=== PATIENT | female | born 2000 | race Caucasian/White ===

== ENCOUNTER 2021-05-13 08:29 | Emergency (ER) | payer MEDICAID, SELFPAY ==
[2021-05-13 08:30] VITALS: BP 130/79; PULSE 91; RESP 16; TEMP 37.2; O2SAT 99; BMI 21.2
--- NOTE | 2021-05-13 08:58 | EX.ED.VIS.UR ---
HPI HPI - URI History of Present Illness Chief Complaint: Sore Throat Informant: patient Onset/Context/Timing Onset: Today Context: Sudden Onset Timing: Continuous Quality: Aching Location: Right jaw Worsened by: Swallowing and Eating Solids Associated Symptoms Associated Symptoms: Negative for Nasal Congestion, Headache, Nausea, Vomiting, Diarrhea, Shortness of Breath, Chest Pain, Nonproductive cough, Hemoptysis and Productive Cough Narrative Narrative: Patient presents with pain and swelling to the right side of her jaw that began today when she woke up. Patient describes it as aching but it is worse with eating or chewing. Patient states nothing makes it better. Patient states the pain is localized to the right side of her jaw. Patient denies any pain on the left side. Patient admits to a mild sore throat. Patient denies any fevers or chills. Patient denies any ear pain. Patient denies any nausea or vomiting. ROS ROS ED Constitutional Constitutional ED: Denies chills or fever(s) Eyes Eyes: Denies blurry vision or change in vision ENT ENT ED: Denies rhinorrhea or sore throat Cardiovascular Cardiovascular: Denies chest pain or palpitations Respiratory/Chest Respiratory/Chest: Denies cough or dyspnea Gastrointestinal Gastrointestinal: Denies nausea or vomiting Genitourinary Genitourinary ED: Denies dysuria or hematuria Musculoskeletal Musculoskeletal: Denies back pain or neck pain Integumentary Denies abscess or rash Neurologic Neurologic: Denies headache(s) or weakness Allergic/Immunologic Allergic/Immunologic ED: Denies mouth swelling or urticaria PFSH PFSH no medical history Home Medications penicillin V potassium 500 mg PO 4X/DAY #40 tab 05/13/21 [Rx Last Taken Unknown] Allergy/AdvReac Type Severity Reaction Status Date / Time No Known Allergies Allergy Verified 05/13/21 08:30 no surgical history Social History Smoking Status: Never smoker EXAM Physical Exam Const Vital Signs: 05/13/21 08:30 Temperature 98.9 F Temperature Source Oral Pulse Rate 91 Respiratory Rate 16 Blood Pressure 130/79 H Blood Pressure Mean 96 Pulse Ox 99 Oxygen Delivery Method Room Air Positive well nourished and well developed General Appearance ED: well developed HEENT Reports moist mucous membranes normocephalic Throat: posterior oropharynx abnormal Positive for erythema; Negative for exudates Eyes PERRL and EOMs intact bilaterally Neck no lymphadenopathy, supple and no JVD Resp normal respiratory effort and clear to auscultation bilaterally Cardio Rate: regular rate Rhythm: regular rhythm GI non-tender Palpation: soft Neuro oriented x3, CN's II-XII intact bilaterally and no sensory deficits noted Sensorium / Orientation: alert Motor Exam: strength 5/5 throughout Psych mental status grossly normal MDM MDM MDM Narrative Medical decision making narrative: Rapid strep was obtained and was negative. CBC and basic metabolic profile were obtained and were within normal limits. Patient is feeling better on reevaluation. Patient was advised that this may be a dental infection. Patient was given a prescription for Pen-Vee K. Patient was instructed to follow-up with her primary care physician in 5 to 7 days. Patient understood and was agreeable with the plan. All questions were answered. Lab Data Attestation: I reviewed the patient's lab results. Labs: Laboratory Results - last 24 hr 05/13/21 05/13/21 09:10 09:10 WBC 5.0 RBC 3.96 L Hgb 11.3 L Hct 34.9 L MCV 88.1 MCH 28.5 MCHC 32.4 RDW Std Deviation 44.0 H RDW Coeff of Eve 13.4 Plt Count 246 MPV 10.6 Immature Gran % (Auto) 0.200 Neut % (Auto) 54.5 Lymph % (Auto) 37.3 [place] % (Auto) 5.8 Eos % (Auto) 1.6 Baso % (Auto) 0.6 Absolute Neuts (auto) 2.7 Absolute Lymphs (auto) 1.87 Nucleated RBC % 0 Sodium 137 Potassium 4.0 Chloride 104 Carbon Dioxide 26.0 Anion Gap 7 BUN 12 Creatinine 0.52 L Estim Creat Clear Calc 146.54 Est GFR (MDRD) Af Amer 191 Est GFR (MDRD) Non-Af 158 BUN/Creatinine Ratio 23.3 H Glucose 84 Calcium 8.7 Discharge Plan Triage Chief Complaint: Sore Throat ED Provider: Tin Castillo Dx/Rx/DC Orders Clinical Impression: Infected dental caries Instructions: ED Tooth Abscess Prescriptions: New penicillin V potassium 250 MG tablet 500 mg PO 4X/DAY Qty: 40 RF: 0 Primary Care Provider: Care Physician,No Primary Referrals: Care Physician,No Primary [Primary Care Provider] - Dentist,Your [STAFF PHYSICIAN] - 5-7 Days Disposition Disposition: Home, Self Care
[2021-05-13 09:16] LABS: Absolute Lymphocyte Count 1.87 X10^3/uL (0.83-4.51); Absolute Neutrophil Count 2.7 X10^3/uL (2.0-7.7); Basophil# 0.03 X10^3/uL; Basophil% 0.6 % (0-1); Eosinophil# 0.08 X10^3/uL; Eosinophils% 1.6 % (0-5); Hematocrit 34.9 % (37-47); Hemoglobin 11.3 g/dL (12.0-15.0); Lymphocyte # 1.87 X10^3/ul (0.83-4.51); Lymphocyte % 37.3 % (19-41); Mean Corp Hgb Conc 32.4 g/dL (32-36); Mean Corpuscular Hgb 28.5 pg (27.0-32.0); Mean Corpuscular Volume 88.1 fL (81-99); Mean Platelet Vol. 10.6 fl (6.2-12.0); Monocyte# 0.29 X10^3/uL; Monocyte% 5.8 % (0-10); NRBC Flagged by Analyzer 0 % (0-5); Neutrophil # 2.74 X10^3/uL (2.7-7.7); Neutrophil % 54.5 % (47-70); Platelet Count 246 K/mm3 (150-450); RBC Distribution Width CV 13.4 % (11.6-14.6); Red Blood Count 3.96 M/mm3 (4.2-5.4)
[2021-05-13 09:29] LABS: Anion Gap 7 (5-15); BUN 12 mg/dL (7-18); BUN/Creat Ratio 23.3 RATIO (10-20); Calcium,Total 8.7 mg/dL (8.5-10.1); Chloride 104 mmol/L (98-107); Creatinine, Serum 0.52 mg/dL (0.55-1.02); EST Glomerular Filtration Rate 158 mL/min (>60); Est Glom Filt Rate - Afr Amer 191 mL/min (>60); Estimated Creatinine Clearance 146.54 ml/min; Glucose 84 mg/dL (74-106); Sodium Level 137 mmol/L (136-145)
--- NOTE | 2021-05-13 10:13 | CM.ED ---
NAGI Note Referral Source: Case Find Referral Reason: No Primary Care Physician (PCP) NAGI met with patient. She reports she has moved to [place] from [place] and has not identified a Primary Care Physician (PCP). NAGI provided her with a handout of [place] [facility] through [facility] and [facility]. No other needs or issued identified at this time. Plan: Provided PCP information to patient Ladi Lencho SCHMITZ
== END 2021-05-13 10:40 | disposition home or self-care (01) ==
PROVIDERS: Emergency Provider Emergency Medicine
DX: K04.7 Periapical abscess without sinus (principal); K02.9 Dental caries, unspecified; J02.9 Acute pharyngitis, unspecified
CPT/HCPCS: 80048; 85025; 87880; 99281; 99282; A4216

== ENCOUNTER 2023-06-30 10:08 | Emergency (ER) | payer OTHER, SELFPAY ==
[2023-06-30 10:09] VITALS: BP 127/84; PULSE 92; RESP 18; TEMP 35.7; O2SAT 100; BMI 20.7
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
[2023-06-30] MEDS: Acetaminophen 500 MG Tablet 1000 MG PO (10:53)
[2023-06-30 11:44] LABS: Bacteria 0 SEEN /hpf (None Seen); Mucous, Urine 0 SEEN /hpf (<or=2+); Red Blood Cells-Urine 0 SEEN /hpf (0-5); White Blood Cells 0 SEEN /hpf (0-5)
[2023-06-30 11:45] LABS: Color, Urine Yellow (Yellow); Glucose, Dipstick Normal (Normal); Ketone-Dipstick Negative (Negative); Leukocyte Esterase-Dipstick Negative /ul (Negative); Nitrite-Dipstick Negative (Negative); Occult Blood-Urine Negative /ul (Negative); Protein-Dipstick 15 mg/dl (Negative); Specific Gravity, Urine 1.015 (1.002-1.030); Urine Bilirubin Dipstick Negative (Negative); Urine Clarity Clear (Clear); Urine Urobilinogen Normal (Normal)
[2023-06-30 11:51] LABS: Squamous Epithelial Cells - UA 0-5 SEEN /hpf (5-10)
[2023-06-30 11:52] LABS: Internal QC Validated? YES +Cl - CLEAR BKGD; Pregnancy, Urine Negative Negative
== END 2023-06-30 13:19 | disposition home or self-care (01) ==
PROVIDERS: Emergency Provider Emergency Medicine; Visit Provider Emergency Medicine
DX: S70.01XA Contusion of right hip, initial encounter (principal); R42 Dizziness and giddiness; V44.5XXA Car driver injured in collision with heavy transport vehicle or bus in traffic accident, initial encounter; W22.10XA Striking against or struck by unspecified automobile airbag, initial encounter; Z23 Encounter for immunization
CPT/HCPCS: 73502; 81001; 81025; 90471; 99284

== ENCOUNTER 2025-01-18 18:07 | Emergency (ER) | payer OTHER, SELFPAY ==
[2025-01-18 18:08] VITALS: BP 122/74; PULSE 90; RESP 14; TEMP 36.6; O2SAT 99; BMI 23.1
--- NOTE | 2025-01-18 18:15 | ED.RN ---
[facility] called and will be in
--- NOTE | 2025-01-18 18:26 | EX.ED.DYSGE1 ---
HPI <KI Choi - Last Filed: 01/18/25 18:49> History of Present Illness Chief Complaint: Other, Pain/Inj Narrative Narrative: Patient presenting today with concerns for a nasal injury that occurred at work this evening. 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 Her work recommended she come in to be evaluated. She denies any epistaxis, she has a small abrasion on the bridge of her nose without active bleeding. Her tetanus is up-to-date. She denies any other injury. PFSH <KI Choi - Last Filed: 01/18/25 18:49> [facility] Medical History no medical history Home Medications ?Medication ?Instructions ?Recorded ?Last Taken ?Type penicillin V potassium 250 mg 500 mg (2 x 250 mg) PO 4X/DAY #40 05/13/21 Unknown Rx tablet tabs Allergy/AdvReac Type Severity Reaction Status Date / Time No Known Allergies Allergy Verified 01/18/25 18:11 Family History no significant family his Social History Smoking Status: Never smoker ROS <KI Choi - Last Filed: 01/18/25 18:49> ROS ED Constitutional Constitutional ED: Denies chills or fever(s) ENT ENT ED: Denies epistaxis Cardiovascular Cardiovascular: Denies chest pain Respiratory/Chest Respiratory/Chest: Denies dyspnea Integumentary Reports Abrasions EXAM <KI Choi Last Filed: 01/18/25 18:49> Physical Exam Const Vital Signs: 01/18/25 18:08 01/18/25 18:21 01/18/25 18:55 Temperature 97.9 F 97.9 F Temperature Source Oral Pulse Rate 90 90 Respiratory Rate 14 14 Respiratory Pattern Normal Blood Pressure 122/74 H 122/74 H Blood Pressure Mean 90 90 Pulse Ox 99 99 Oxygen Delivery Method Room Air Positive well nourished, well developed and no apparent distress General Appearance ED: well developed HEENT Reports normocephalic and head/scalp atraumatic HEENT Narrative: No septal hematoma, no epistaxis, no septal deviation, small abrasion and mild swelling to the bridge of the nose, nasal bridge nontender. Mouth ED: Yes moist mucous membranes normal Eyes PERRL and EOMs intact bilaterally Neck full ROM and supple Chest Wall inspection of chest normal Resp normal respiratory effort and clear to auscultation bilaterally Cardio regular rate and regular rhythm Back/Spine normal ROM and normal to inspection Extremity normal to inspection and full ROM Neuro oriented x3, moves all extremities, no focal motor deficits and no sensory deficits noted Sensorium / Orientation: awake and alert Psych mental status grossly normal and thought process normal Skin Skin Narrative: Aside from small abrasion to the bridge of the nose, no wounds or rashes noted. <Jordon Chow MD - Last Filed: 01/18/25 23:50> Physical Exam Const Vital Signs: 01/18/25 18:08 01/18/25 18:21 01/18/25 18:55 Temperature 97.9 F 97.9 F Temperature Source Oral Pulse Rate 90 90 Respiratory Rate 14 14 Respiratory Pattern Normal Blood Pressure 122/74 H 122/74 H Blood Pressure Mean 90 90 Pulse Ox 99 99 Oxygen Delivery Method Room Air [facility] <KI Choi - Last Filed: 01/18/25 18:49> [facility] Narrative Medical decision making narrative: Patient presenting today with concerns for nasal injury that occurred today at work. She works at [employer], the fire door opened and hit her in the nose. She has a small abrasion to the bridge of the nose that is not bleeding, her tetanus is up-to-date. Her nasal bridge is nontender, she has no septal deviation, no septal hematoma, no epistaxis. Low suspicion for nasal fracture. Exam is consistent with a nasal contusion. Recommended she ice the area and alternate Tylenol and ibuprofen as needed for pain. I do not feel that imaging is indicated at this time. She can follow-up with occupational health. She will be discharged home in stable condition. <Jordon Chow MD - Last Filed: 01/18/25 23:50> [facility] Treatment and Re-Evaluation :: Dr. Chow: I have personally performed a face to face assessment of the patient and have reviewed the LATA Note. I performed a substantive portion of the visit including all aspects of the following. My chan findings include: History is contusion to bridge of nose with abrasion to right side after hitting on cabinet door at work. No bleeding. Exam is GCS 15. ABCs intact. Small abrasion on right bridge of nose. No nasal septal hematoma, no active bleeding. Medical Decision Making: I have very low suspicion for nasal fracture and do not feel CT is indicated. I feel this is probably more of a nasal contusion with abrasion. Symptomatic treatment. Follow-up with [facility]. [id number] analgesics. Discharge. Other additions or changes: [None] Discharge Plan Triage Chief Complaint: Other, Pain/Inj ED Midlevel Provider: Mehreen Forde ED Provider: Jordon Chow Dx/Rx/DC Orders Clinical Impression: Contusion of nose, Abrasion of nose Instructions: ED Nasal Contusion Prescriptions: No Action penicillin V potassium 250 MG tablet 500 mg PO 4X/DAY Qty: 40 0RF Primary Care Provider: Care Physician,No Primary Referrals: Care Physician,No Primary [Primary Care Provider] - Activity Restrictions/Additional Instructions: Ice your nose, take Tylenol and ibuprofen as needed for pain. Follow-up with occupational health. Print Language: Georgian Disposition Disposition: Home, Self Care Discharge Date/Time: 01/18/25 18:55
[2025-01-18 18:55] VITALS: BP 122/74; PULSE 90; RESP 14; TEMP 36.6; O2SAT 99
== END 2025-01-18 18:55 | disposition home or self-care (01) ==
LOC: ED 18:38
PROVIDERS: Emergency Provider Emergency Medicine; Referring Provider Emergency Medicine; Visit Provider Emergency Medicine
DX: S00.31XA Abrasion of nose, initial encounter (principal); S00.33XA Contusion of nose, initial encounter; W22.8XXA Striking against or struck by other objects, initial encounter; Y93.G9 Activity, other involving cooking and grilling; Y99.0 Civilian activity done for income or pay; Y92.511 Restaurant or cafe as the place of occurrence of the external cause
CPT/HCPCS: 99282